=== PATIENT | female | born 1975 | race African-American/Black ===

== ENCOUNTER 2020-04-19 10:56 | Outpatient (CLI) | payer MEDICARE, OTHER ==
[~2020-04-19 10:56] MED LIST: ACET325T14 PO; IBUP200T64 PO
== END 2020-04-19 23:59 | disposition home or self-care (01) ==
LOC: STAR 10:56
PROVIDERS: ATTEND Obstetrics & Gynecology Female Pelvic Medicine and Reconstructive Surgery
DX: Z02.9 Encounter for administrative examinations, unspecified (principal)

== ENCOUNTER 2020-04-23 08:15 | Day surgery (SDC) | payer OTHER, MEDICARE ==
[~2020-04-23] VITALS: Ht 170.2 cm; Wt 111.4 kg
[~2020-04-23 08:15] MED LIST changes: +BUPIVACAINE/PF-EPI 0.25% 1:200K ONE; +GENTAMICIN 80 MG/2 ML ONE; +VANCOMYCIN 500 MG ONE
[2020-04-23 09:22] VITALS: BP 114/80
[2020-04-23 09:27] VITALS: BP 114/80
[2020-04-23] MEDS ORDERED: SCOPOLAMINE 1MG PATCH TD SCH (09:30)
[2020-04-23] MEDS ORDERED: ACETAMINOPHEN 500 MG TABLET PO ONE (09:30)
[2020-04-23] MEDS ORDERED: DIAZEPAM 5 MG TABLET PO ONE (09:30)
[2020-04-23] MEDS ORDERED: LACTATED RINGERS 1,000 ML IV SCH (09:30)
[2020-04-23] MEDS ORDERED: CHLORHEXIDINE 15 ML UDC MM ONE (10:00)
[2020-04-23 10:09] LABS: HCG UR SG 1.023 (1.003-1.030)
[2020-04-23] MEDS ORDERED: MIDAZOLAM 1 MG/ML, 2ML ONE (10:47)
[2020-04-23] MEDS ORDERED: FENTANYL PF 250 MCG/5ML ONE (10:47)
[2020-04-23] MEDS ORDERED: SUCCINYLCHOLINE 20 MG/ML, 10ML ONE (10:49)
[2020-04-23] MEDS ORDERED: CEFAZOLIN 1,000 MG ONE (10:49)
[2020-04-23] MEDS ORDERED: ROCURONIUM 10MG/ML,5ML ONE (10:49)
[2020-04-23] MEDS ORDERED: PROPOFOL 10 MG/ML, 20ML ONE (10:49)
[2020-04-23] MEDS ORDERED: ONDANSETRON 2MG/ML, 2ML ONE ×2 (10:49→15:16)
[2020-04-23] MEDS ORDERED: DEXAMETHASONE 4 MG/ML, 1ML ONE (10:49)
[2020-04-23] MEDS ORDERED: NEOSTIGMINE 1 MG/ML, 10ML ONE (10:49)
[2020-04-23] MEDS ORDERED: GLYCOPYRROLATE 0.2MG/1ML, 5ML ONE (10:49)
[2020-04-23] MEDS ORDERED: LIDOCAINE-MPF 2% ,5ML ONE (12:58)
[2020-04-23] MEDS ORDERED: METHOCARBAMOL 1,000 MG in DEXTROSE 5% 100 ML IV PRN (13:30)
[2020-04-23] MEDS ORDERED: ONDANSETRON 2MG/ML, 2ML IVPush PRN (13:30)
[2020-04-23] MEDS ORDERED: PROMETHAZINE 25 MG/ML, 1ML IVPush PRN (13:30)
[2020-04-23] MEDS ORDERED: HYDROmorphone 1 MG/ML, 1ML INJ IVPush PRN (13:30)
[2020-04-23] MEDS ORDERED: OXYcodone 5 MG/5 ML ORAL.SOL UDC PO PRN (13:30)
[2020-04-23] MEDS ORDERED: PROMETHAZINE 25 MG SUPP PR PRN (13:30)
[2020-04-23] MEDS ORDERED: FENTANYL PF 100 MCG/2ML ONE ×4 (13:56→15:47)
[2020-04-23] MEDS: FENTANYL PF 100 MCG/2ML IV PRN ×5 (15:15→15:55)
[2020-04-23] MEDS ORDERED: OXYcodone 5 MG/5 ML ORAL.SOL UDC ONE (15:30)
[2020-04-23] MEDS ORDERED: HYDROcodone/APAP 5/325 TABLET ONE (17:32)
[2020-04-23] MEDS ORDERED: KETOROLAC 30 MG/1 ML ONE (17:32)
== END 2020-04-23 18:40 | disposition home or self-care (01) ==
LOC: OUT 08:15
PROVIDERS: ATTEND Obstetrics & Gynecology Female Pelvic Medicine and Reconstructive Surgery
DX: N92.1 Excessive and frequent menstruation with irregular cycle (principal); Z11.59 Encounter for screening for other viral diseases; N94.6 Dysmenorrhea, unspecified; N94.10 Unspecified dyspareunia; D25.9 Leiomyoma of uterus, unspecified; N83.8 Other noninflammatory disorders of ovary, fallopian tube and broad ligament; N81.89 Other female genital prolapse; N39.46 Mixed incontinence; N73.6 Female pelvic peritoneal adhesions (postinfective); R10.2 Pelvic and perineal pain; K21.9 Gastro-esophageal reflux disease without esophagitis; I10 Essential (primary) hypertension; J45.909 Unspecified asthma, uncomplicated; Z79.899 Other long term (current) drug therapy; Z88.0 Allergy status to penicillin; Z98.51 Tubal ligation status; Z98.84 Bariatric surgery status; Z98.890 Other specified postprocedural states
CPT/HCPCS: 36415; 57265; 57282; 57288; 58554; 81025; 87635; 88307; C1771; J0690; J1100; J1580; J2250; J2405; J2704; J2710; J3010; J3370; J7120; J0330